=== PATIENT | female | born 1975 | race Hispanic/Latino ===

== ENCOUNTER 2022-09-28 22:23 | Emergency (ER) | payer BC ==
[2022-09-29 01:01] LABS: SARS-COV-2 RT PCR NEGATIVE (NEGATIVE)
--- NOTE | 2022-09-29 01:10 | ER ---
Nurse's Notes [facility] Name: Sanna Escobar Age: 47 yrs Sex: Female : 1975 Arrival Date: 09/28/2022 Time: 22:24 Bed 11 Private MD: Diagnosis: Cough;Acute pharyngitis, unspecified Presentation: 09/28 23:14 Chief complaint: Patient states: she has had a cough x 1 month saw telemedicine who bb gave her cough medicine but the cough has gotten worse. Coronavirus screen: Client presents with at least one sign or symptom that may indicate coronavirus-19. Ebola Screen: No symptoms or risks identified at this time. Initial Sepsis Screen: Does the patient meet any 2 criteria? No. Patient's initial sepsis screen is negative. Does the patient have a suspected source of infection? No. Patient's initial sepsis screen is negative. Risk Assessment: Do you want to hurt yourself or someone else? Patient reports no desire to harm self or others. Onset of symptoms was July 2022. 23:14 Method Of Arrival: Ambulatory bb 23:14 Acuity: SAM 3 bb Triage Assessment: 23:15 General: Appears in no apparent distress. Behavior is calm, cooperative. Pain: Denies bb pain. Neuro: Level of Consciousness is awake, alert, obeys commands, Oriented to person, place, time, situation. Cardiovascular: Capillary refill < 3 seconds Patient's skin is warm and dry. Respiratory: Reports cough that is persistent Respiratory effort is even, unlabored, Respiratory pattern is regular. GI: No signs and/or symptoms were reported involving the gastrointestinal system. Derm: Skin is pink, warm \T\ dry. Musculoskeletal: Circulation, motion, and sensation intact. 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 - Social history:: Smoking status: Patient denies any tobacco usage or history of. Screenin/31 01:28 [facility] ED Fall Risk Assessment (Adult) History of falling in the last 3 months, lg3 including since admission No falls in past 3 months (0 pts). Abuse screen: Denies threats or abuse. Denies injuries from another. Nutritional screening: No deficits noted. Tuberculosis screening: No symptoms or risk factors identified. Assessment: 01:28 General: Appears in no apparent distress. comfortable, Behavior is calm, cooperative. lg3 Pain: Denies pain. Neuro: No deficits noted. Martinez Agitation-Sedation Scale (RASS): 0 - Alert and Calm Level of Consciousness is awake, alert, obeys commands, Oriented to person, place, time, situation. Cardiovascular: No deficits noted. Denies chest pain, shortness of breath, Capillary refill < 3 seconds Clubbing of nail beds is absent JVD is absent Patient's skin is warm and dry. Respiratory: Reports cough that is persistent pain with cough Airway is patent Trachea midline Respiratory effort is even, unlabored, Respiratory pattern is regular, symmetrical. GI: No deficits noted. No signs and/or symptoms were reported involving the gastrointestinal system. Abdomen is round non-distended. : No deficits noted. No signs and/or symptoms were reported regarding the genitourinary system. EENT: No deficits noted. No signs and/or symptoms were reported regarding the EENT system. Derm: No deficits noted. No signs and/or symptoms reported regarding the dermatologic system. Skin is intact, is healthy with good turgor, Skin is dry, Skin is normal. Musculoskeletal: No deficits noted. No signs and/or symptoms reported regarding the musculoskeletal system. Circulation, motion, and sensation intact. Range of motion: intact in all extremities. Vital Signs: 09/28 23:15 BP 123 / 81; Pulse 72; Resp 16 S; Temp 98.4(O); Pulse Ox 99% on R/A; Weight 69.85 kg bb (R); Height 5 ft. 0 in. (152.40 cm) (R); 23:15 Body Mass Index 30.08 (69.85 kg, 152.40 cm) bb ED Course: 22:24 Patient arrived in ED. ag3 22:45 Israel Bond PA is PHCP. cp 22:45 Israel Boyer MD is Attending Physician. cp 23:15 Triage completed. bb 23:15 Arm band placed on Patient placed in waiting room, Patient notified of wait time. bb Family accompanied patient. 23:24 Labs ordered per protocol. swabs sent to lab. bb 23:49 XRAY Chest Pa And Lat (2 Views) In Process Unspecified. EDMS 09/29 01:28 Patient has correct armband on for positive identification. Placed in gown. Bed in low lg3 position. Call light in reach. Side rails up X 1. Client placed on continuous cardiac and pulse oximetry monitoring. NIBP monitoring applied. Door closed. Noise minimized. Warm blanket given. Family accompanied patient. 01:28 No provider procedures requiring assistance completed. Patient did not have IV access lg3 during this emergency room visit. Administered Medications: No medications were administered Medication: :28 VIS not applicable for this client. lg3 Outcome: 01:10 Discharge ordered by . chavo 01:28 Discharged to home ambulatory, with significant other. lg3 01:28 Condition: stable 01:28 Discharge instructions given to patient, Instructed on discharge instructions, follow up and referral plans. medication usage, Demonstrated understanding of instructions, follow-up care, medications, Prescriptions given X 4. 01:29 Patient left the ED. lg3 Signatures: Dispatcher [employer] EDMS Noy Cloud RN RN Israel Adkins, Zahira Paula cp 3 Brittanie Bacon, MORENO RN lg3
--- NOTE | 2022-09-29 01:10 | EDPHYS ---
Physician Documentation [facility] Name: Sanna Escobar Age: 47 yrs Sex: Female : 1975 Arrival Date: 09/28/2022 Time: 22:24 Bed 11 Private MD: EBBETO Physician Israel Boyer HPI: 09/28 23:16 This 47 yrs old Female presents to ER via Ambulatory with complaints of Cough. cp 23:16 The patient or guardian reports cough, that is intermittent, with productive sputum, cp that is white. Onset: The symptoms/episode began/occurred 1 month(s) ago. Severity of symptoms: in the emergency department the symptoms are unchanged, despite home interventions. Associated signs and symptoms: Pertinent positives: sore throat, vomiting, Pertinent negatives: chest pain, fever. 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 - Social history:: Smoking status: Patient denies any tobacco usage or history of. ROS: 23:17 Eyes: Negative for injury, pain, redness, and discharge. cp 23:17 Constitutional: Negative for body aches, chills, fever, poor PO intake. 23:17 ENT: Positive for sore throat, Negative for drainage from ear(s), ear pain, difficulty swallowing, difficulty handling secretions. 23:17 Respiratory: Positive for cough, with white sputum, shortness of breath, Negative for wheezing. 23:17 Abdomen/GI: Positive for vomiting, Negative for abdominal pain, diarrhea, constipation. 23:17 Cardiovascular: Negative for chest pain, edema, palpitations. cp 23:17 Neuro: Negative for altered mental status, dizziness, headache, syncope, weakness. 23:17 All other systems are negative. Exam: 23:20 Head/Face: Normocephalic, atraumatic. cp 23:20 Constitutional: The patient appears in no acute distress, alert, awake, non-diaphoretic, non-toxic, well developed, well nourished. 23:20 Eyes: Periorbital structures: appear normal, Conjunctiva: normal, no exudate, no cp injection, Sclera: no appreciated abnormality, Lids and lashes: appear normal, bilaterally. 23:20 ENT: External ear(s): are unremarkable, Ear canal(s): are normal, clear, TM's: bulging, cp is not appreciated, bilaterally, dullness, bilaterally, erythema, is not appreciated, bilaterally, Nose: is normal, Mouth: Lips: moist, Oral mucosa: pink and intact, moist, Posterior pharynx: Airway: no evidence of obstruction, patent, Tonsils: with erythema, no enlargement, no exudate, Uvula: midline, swelling, is not appreciated, erythema, that is mild. 23:20 Neck: ROM/movement: is normal, is supple, without pain, no range of motions limitations, no meningismus, Lymph nodes: no appreciated lymphadenopathy. 23:20 Chest/axilla: Inspection: normal. 23:20 Cardiovascular: Rate: normal, Rhythm: regular. 23:20 Respiratory: the patient does not display signs of respiratory distress, Respirations: normal, no use of accessory muscles, no retractions, labored breathing, is not present, Breath sounds: decreased breath sounds, are not appreciated, stridor, is not appreciated, wheezing: is not appreciated. 23:20 Abdomen/GI: Exam negative for discomfort, distension, guarding, Inspection: abdomen appears normal. Vital Signs: 23:15 BP 123 / 81; Pulse 72; Resp 16 S; Temp 98.4(O); Pulse Ox 99% on R/A; Weight 69.85 kg bb (R); Height 5 ft. 0 in. (152.40 cm) (R); 23:15 Body Mass Index 30.08 (69.85 kg, 152.40 cm) bb MDM: 23:30 Patient medically screened. cp 09/29 00:00 Differential Diagnosis: Bronchitis Influenza Viral Syndrome Pneumonia. cp 00:45 Independent interpretation of the following test(s) in the Emergency Department X-Ray: cp My interpretation is chest negative for focal pneumonia. 01:10 Data reviewed: vital signs, nurses notes, lab test result(s), radiologic studies, plain cp films. 01:10 Consideration of Admission/Observation Escalation of care including cp admission/observation considered. I considered the following discharge prescriptions or medication management in the emergency department Medications were administered in the Emergency Department. See MAR. Test considered but Not performed: Labs: CBC, BMP. Counseling: I had a detailed discussion with the patient and/or guardian regarding: the historical points, exam findings, and any diagnostic results supporting the discharge/admit diagnosis, lab results, radiology results, the need for outpatient follow up, a family practitioner, to return to the emergency department if symptoms worsen or persist or if there are any questions or concerns that arise at home. ED course: VSS. Patient appears non-toxic and no signs of respiratory distress. Will discharge to home for continued monitoring. 09/28 23:17 Order name: COVID-19/FLU A+B cp 09/28 23:19 Order name: Strep; Complete Time: 00:59 cp 09/29 00:59 Interpretation: Reviewed. cp 09/28 23:17 Order name: XRAY Chest Pa And Lat (2 Views) cp 09/29 01:00 Order name: Throat Culture EDMS Administered Medications: No medications were administered Disposition Summary: 09/29/22 01:10 Discharge Ordered Location: Home cp Problem: an ongoing problem cp Symptoms: are unchanged cp Condition: Stable cp Diagnosis - Cough cp - Acute pharyngitis, unspecified cp Followup: cp - With: Private Physician - When: 2 - 3 days - Reason: Recheck today's complaints Discharge Instructions: - Discharge Summary Sheet cp - Pharyngitis cp - Cough, Adult cp Forms: - Medication Reconciliation Form cp - Thank You Letter cp - Antibiotic Education cp - Prescription Opioid Use cp Prescriptions: - albuterol sulfate 90 mcg/actuation Inhalation HFA aerosol inhaler - inhale 1 puff by INHALATION route every 4-6 hours; 1 Inhaler; Refills: 0, cp Product Selection Permitted - Zithromax Z-Bassem 250 mg Oral Tablet - take 1 tablet by ORAL route as directed for 5 days Day 1 - take two (2) tablets cp one time. Day 2, 3, 4 , 5 take one (1) tablet once daily.; 6 tablet; Refills: 0, Product Selection Permitted - Bromfed DM 2-30-10 mg/5 mL Oral syrup - take 10 milliliter by ORAL route every 6 hours; 180 milliliter; Refills: 0, cp Product Selection Permitted - Prednisone 20 mg Oral Tablet - take 2 tablets by ORAL route once daily for 5 days; 10 tablet; Refills: 0, cp Product Selection Permitted Signatures: Dispatcher [employer] EDNoy Shepard RN RN bb Page, Israel, PA PA cp
[2022-09-29 01:35] VITALS: BP 123/81; TEMP 98.4; O2SAT 99
--- NOTE | 2022-09-29 12:14 | RAD REPORT ---
EXAM DESCRIPTION: RAD - Chest Pa And Lat (2 Views) - 09/28/2022 11:49 pm CLINICAL HISTORY: 7 years Female, COUGH COMPARISON: Chest radiograph dated 11/23/2019 FINDINGS: No focal lung consolidation. No pleural effusion. No pneumothorax. Cardiomediastinal silhouette is within normal limits. No acute osseous abnormality. IMPRESSION: No acute cardiopulmonary disease. Electronically signed by: Jason Sparks DO 09/29/2022 1:21 AM SECURITY REP Due to temporary technical issues with the PACS/Fluency reporting system, reports are being signed by the in house radiologists without review as a courtesy to insure prompt reporting. The interpreting radiologist is fully responsible for the content of the report.
== END 2022-09-29 01:29 | disposition home or self-care (01) ==
LOC: ER 22:23
DX: R05.9 Cough, unspecified (principal); J02.9 Acute pharyngitis, unspecified; R11.10 Vomiting, unspecified; Z20.822 Contact with and (suspected) exposure to COVID-19
CPT/HCPCS: 87070; 87081; 0240U; 71046